=== PATIENT | female | born 1940 | race Caucasian/White ===

== ENCOUNTER 2018-05-06 06:47 | Day surgery (SDC) | payer OTHER ==
[~2018-05-06] VITALS: Ht 160 cm; Wt 136.1 kg
[2018-05-06 08:28] VITALS: BP 163/96
[2018-05-06 14:12] VITALS: BP 154/86
== END 2018-05-06 12:30 | disposition home or self-care (01) ==
LOC: DS 06:47 → GI 09:30 → OR 09:30 → GI 10:00 → DS 12:30
PROVIDERS: Internal Medicine
PROC: 0W3P8ZZ Control Bleeding in Gastrointestinal Tract, Via Natural or Artificial Opening Endoscopic (ICD-10-PCS; principal; 2018-05-06 10:00)
DX: K92.2 Gastrointestinal hemorrhage, unspecified (principal); D50.0 Iron deficiency anemia secondary to blood loss (chronic); K57.30 Diverticulosis of large intestine without perforation or abscess without bleeding; Q27.33 Arteriovenous malformation of digestive system vessel; I10 Essential (primary) hypertension; E78.5 Hyperlipidemia, unspecified; F41.9 Anxiety disorder, unspecified; M19.90 Unspecified osteoarthritis, unspecified site; E66.01 Morbid (severe) obesity due to excess calories; Z68.43 Body mass index [BMI] 50.0-59.9, adult; Z80.0 Family history of malignant neoplasm of digestive organs; Z83.3 Family history of diabetes mellitus; Z87.891 Personal history of nicotine dependence; Z79.01 Long term (current) use of anticoagulants
CPT/HCPCS: 45378; J1200; J1610; J2250; J2310; J3010; J3490